=== PATIENT | male | born 1995 ===

== ENCOUNTER 2019-01-05 15:02 | Emergency (ER) | payer MEDICAID ==
[~2019-01-05] VITALS: Ht 160 cm; Wt 60.0 kg
[2019-01-05 15:13] VITALS: BP 139/65; PULSE 93; RESP 20; Ht 160 cm; Wt 60.0 kg
[2019-01-05] MEDS ORDERED: LIDOCAINE 2%/EPI MPF (SDV) 20 ML VIAL INJ STA (16:34)
[2019-01-05] MEDS ORDERED: DIPHTH/TET/ACEL PERTUSS (ADULT) 0.5 ML VIAL IM* ONE (17:00)
--- NOTE | 2019-01-05 18:08 | ERD ---
ER Documentation Chief Complaint Chief Complaint R lower arm laceration got caught in chicken wire HPI Patient is a 23-year-old male with no medical problems who presents with a laceration to his right forearm. He cut his right forearm on chickenwire 1 hour prior. He has no discomfort at this time and no bleeding. He is right-hand dominant. He has no problems moving his hand or fingers. He does not currently have a primary doctor. ROS All systems reviewed and are negative except as per history of present illness. Allergies Allergies: Coded Allergies: No Known Allergy (Unverified , 01/05/19) PMhx/Soc Medical and Surgical Hx: pt denies Medical Hx, pt denies Surgical Hx History of Surgery: No Anesthesia Reaction: No Hx Alcohol Use: No Hx Substance Use: No Hx Tobacco Use: No FmHx Family History: diabetes Physical Exam Vitals Vital Signs Date Temp Pulse Resp B/P (MAP) Pulse Ox O2 O2 Flow FiO2 Time Delivery Rate 01/05/19 98.3 93 20 139/65 98 15:13 (89) Physical Exam Const: No acute distress Head: Atraumatic Eyes: Normal Conjunctiva ENT: Normal External Ears, Nose and Mouth. Neck: Full range of motion. No meningismus. Resp: Clear to auscultation bilaterally Cardio: Regular rate and rhythm, no murmurs Abd: Soft, non tender, non distended. Normal bowel sounds Skin: Linear 4 cm laceration of the right forearm Back: No midline or flank tenderness Ext: No cyanosis, or edema Neur: Awake and alert Psych: Normal Mood and Affect Results 24 hrs Current Medications Medications Dose Sig/Nishant Start Time Status Last (Trade) Ordered Route PRN Stop Time Admin Dose Reason Admin Diphtheria/ 0.5 ml ONCE ONCE 01/05/19 DC 01/05/19 Tetanus/Acell IM* 17:00 17:05 Pertussis 01/05/19 17:01 (Adacel) Lidocaine/ 20 ml ONCE STAT 01/05/19 DC Epinephrine INJ 16:34 (Xylocaine 01/05/19 16:36 2%/ Epi Mpf(Sdv)) Procedures/MDM Laceration Repair by me: Anesthesia: 1% lidocaine [with] epinephrine locally Location: Right forearm Tendon/Joint/Nerves: No injury Foreign body: None detected after copious irrigation and exploration Technique: Simple Interrupted Sutures Complexity: No subcutaneous sutures/mucosal repair/edge excision Post Closure Length: 4 cm Patient's bleeding was easily controlled in the department and there is no indication of anemia. No evidence of compartment syndrome, neurologic injury, vascular injury, open joint, tendon laceration, or foreign body. Patient is appropriate for outpatient follow up. 48 hour wound check. Scar minimization instructions given. Departure Diagnosis: Primary Impression: Laceration Condition: Fair Patient Instructions: Laceration, All Referrals: [facility] YOU HAVE RECEIVED A MEDICAL SCREENING EXAM AND THE RESULTS INDICATE THAT YOU DO NOT HAVE A CONDITION THAT REQUIRES URGENT TREATMENT IN THE EMERGENCY DEPARTMENT. FURTHER EVALUATION AND TREATMENT OF YOUR CONDITION CAN WAIT UNTIL YOU ARE SEEN IN YOUR DOCTORS OFFICE WITHIN THE NEXT 1-2 DAYS. IT IS YOUR RESPONSIBILITY TO MAKE AN APPOINTMENT FOR FOLOW-UP CARE. IF YOU HAVE A PRIMARY DOCTOR --you should call your primary doctor and schedule an appointment IF YOU DO NOT HAVE A PRIMARY DOCTOR YOU CAN CALL OUR PHYSICIAN REFERRAL HOTLINE AT IF YOU CAN NOT AFFORD TO SEE A PHYSICIAN YOU CAN CHOSE FROM THE FOLLOWING [facility] [address] [facility] [address] [employer] [facility] [address] [facility] [address] [facility] [address] [facility] [facility]. [address] Additional Instructions: Wound check 2 days. Suture removal 7-10 days. CONY REED MD Jan 05, 2019 18:08
== END 2019-01-05 17:10 | disposition home or self-care (01) ==
LOC: FTE 15:02
DX: S51.811A Laceration without foreign body of right forearm, initial encounter (principal); W26.8XXA Contact with other sharp object(s), not elsewhere classified, initial encounter; Y92.9 Unspecified place or not applicable; Z23 Encounter for immunization
CPT/HCPCS: 12002; 90471; 90715; Z7502; Z7610